=== PATIENT | male | born 1985 | race African-American/Black ===

== ENCOUNTER 2017-05-18 05:22 | Inpatient (IN) | payer OTHER ==
[~2017-05-18] VITALS: Ht 180.3 cm; Wt 79.4 kg
[2017-05-18] MEDS: IV 1/2 NORMAL SALINE 1,000 ML IV SCH ×2 (06:15→14:07)
[2017-05-18 06:20] VITALS: BP 125/67
[2017-05-18] MEDS: IV NORMAL SALINE 1000ML BAG 1,000 ML IV SCH ×2 (08:45→22:05)
[2017-05-18 11:00] VITALS: BP 120/71
[2017-05-18 13:53] VITALS: BP 120/71
[2017-05-18] MEDS ORDERED: MORPHINE SULFATE 4 MG/ML DISP.SYRIN. IV PRN (14:15)
[2017-05-18] MEDS ORDERED: PROCHLORPERAZINE 10 MG/2 ML VIAL. IV PRN (14:15)
[2017-05-18] MEDS ORDERED: 0.9 % SODIUM CHLORIDE 10 ML DISP.SYRIN. IV PRN (14:15)
--- NOTE | 2017-05-18 14:45 | PDOC2 ---
CONSULT Date of Consult Date of Consult DATE: 05/18/17 TIME: 14:44 Current Medications Current Medications Current Medications Sodium Chloride 1,000 ml @ 75 mls/hr [id number] IV Last administered on t 08:45; Start 05/18/17 at 08:45 Sodium Chloride (Normal Saline Flush) 3 ml PRN DAILY PRN IV AFTER MEDS AND BLOOD DRAWS; Start 05/18/17 at 14:15 Sodium Chloride 1,000 ml @ 100 mls/hr Q10H IV ; Start 05/18/17 at 14:07 Prochlorperazine Edisylate (Compazine) 10 mg PRN Q6HRS PRN IV NAUSEA/VOMITING; Start 05/18/17 at 14:15 Oxycodone HCl (Roxicodone) 5 mg PRN Q4HRS PRN PO PAIN - 1st choice; Start 05/18 at 14:15 Morphine Sulfate 2 mg PRN Q2HR PRN IV PAIN; Start 05/18/17 at 14:15 Allergies Allergies: Coded Allergies: No Known Drug Allergies (Unverified , 05/18/17) Vitals VITALS Vital Signs Date Time Temp Pulse Resp B/P (MAP) Pulse Ox O2 Delivery O2 Flow Rate FiO2 05/18/17 13:53 98.1 48 120/71 (87) 99 Room Air 98.1 05/18/17 11:00 16 Assessment/Plan Assessment/Plan FNTF impression: gastroenteritis advance diet at tolerated ALBERTO AHN MD May 18, 2017 14:45
[2017-05-18 15:00] VITALS: BP 138/87
[2017-05-18] MEDS: oxyCODONE IR 5 MG TABLET PO PRN ×2 (15:19→19:49)
[2017-05-18 19:00] VITALS: BP 140/91
--- NOTE | 2017-05-18 20:00 | HP ---
ADMIT DATE: 05/18/2017 CHIEF COMPLAINT: Abdominal pain. HISTORY OF PRESENT ILLNESS: The patient is a healthy 31-year-old gentleman who presented to [facility] ER last night with a 2-3 day history of abdominal pain. He locates it in the right upper quadrant to middle of his right abdomen. He denies any associated nausea or vomiting. Actually has been able to eat fairly well. On CT in the Emergency Room, he was found with signs consistent with acute appendicitis. He was therefore transported to [facility] for surgical evaluation. He denies having any fevers or chills or any other symptoms. PAST MEDICAL HISTORY: None. FAMILY HISTORY: None. SOCIAL HISTORY: No toxic habits. ALLERGIES: No known drug allergies. MEDICATIONS: No home medications. REVIEW OF SYSTEMS: Positive only for abdominal pain as per HPI. Rest of organ system review is completely negative. PHYSICAL EXAMINATION: VITAL SIGNS: From today show a blood pressure of 120/71, heart rate of 48, respiratory rate at 16. He is afebrile. GENERAL: This is a well-nourished, well-developed 31-year-old gentleman, alert and oriented, no acute distress, very pleasant. HEENT: Shows no scleral icterus. Oral mucosa is pink and moist. NECK: Supple. LUNGS: Clear. HEART: Has regular rate and rhythm. ABDOMEN: Has minimal tenderness to palpation in the mid right abdominal area. Bowel sounds are normal. EXTREMITIES: Show no edema. SKIN: Warm, soft and dry without any rash. LABORATORY DATA: From [facility] were reviewed. ASSESSMENT AND PLAN: The patient is a 31-year-old gentleman with clinical findings of appendicitis. He is relatively asymptomatic. Surgery has been consulted. There are no plans for immediate surgery as of yet. We will continue on IV fluids for the time being. He is not on antibiotics. We will wait for the surgical input. DARIAN SOTO MD DR: UR/nts JOB#: [id number] / [id number] WILLIAM
[2017-05-18 23:00] VITALS: BP 100/55
[2017-05-19 03:00] VITALS: BP 122/77
[2017-05-19] MEDS: oxyCODONE IR 5 MG TABLET PO PRN (03:48)
[2017-05-19 05:11] LABS: BASO % 1 % (0-3); EOS % 2 % (0-3); HEMATOCRIT 42.8 % (39.0-53.0); LYMPH # 1.3 x10^3/uL (1.0-4.8); LYMPH % 38 % (24-48); MEAN CORPUSCULAR HEMOGLOBIN 28 pg (25-35); MEAN CORPUSCULAR HGB CONC 33 g/dL (31-37); MEAN CORPUSCULAR VOLUME 84 fL (79-100); MONO % 9 % (0-9); NEUT % 51 % (31-73); PLATELET COUNT 175 x10^3/uL (140-400); RED BLOOD COUNT 5.07 x10^6/uL (4.30-5.70); RED CELL DISTRIBUTION WIDTH 14.7 % (11.5-14.5); WHITE BLOOD COUNT 3.4 x10^3/uL (4.0-11.0)
[2017-05-19 07:00] VITALS: BP 119/64
[2017-05-19 07:44] LABS: ALBUMIN 3.1 g/dL (3.4-5.0); CALCIUM 8.6 mg/dL (8.5-10.1); CREATININE 1.3 mg/dL (0.7-1.3); GFR 77.9; TOTAL BILIRUBIN 1.2 mg/dL (0.2-1.0); TOTAL PROTEIN 6.1 g/dL (6.4-8.2)
[2017-05-19] MEDS: IV 1/2 NORMAL SALINE 1,000 ML IV SCH (10:07)
[2017-05-19] MEDS: IV NORMAL SALINE 1000ML BAG 1,000 ML IV SCH (11:25)
[2017-05-19 11:48] VITALS: BP 131/87
--- NOTE | 2017-05-19 12:24 | PDOC ---
KONG GALEANO [employer] 05/19/17 1224: SURGICAL PROGRESS NOTE Subjective tolerating diet mild epigastric pain Vital Signs Vital Signs Date Time Temp Pulse Resp B/P (MAP) Pulse Ox O2 Delivery O2 Flow Rate FiO2 05/19/17 11:48 97.7 62 18 131/87 (102) 98 Room Air 97.7 General: Alert, Oriented X3, Cooperative, No acute distress Abdomen: Soft, Other (mild ttp epigastric ) Labs Laboratory Tests Test 05/19/17 04:30 White Blood Count 3.4 x10^3/uL (4.0-11.0) Red Blood Count 5.07 x10^6/uL (4.30-5.70) Hemoglobin 14.0 g/dL (13.0-17.5) Hematocrit 42.8 % (39.0-53.0) Mean Corpuscular Volume 84 fL (79-100) Mean Corpuscular Hemoglobin 28 pg (25-35) Mean Corpuscular Hemoglobin Concent 33 g/dL (31-37) Red Cell Distribution Width 14.7 % (11.5-14.5) Platelet Count 175 x10^3/uL (140-400) Neutrophils (%) (Auto) 51 % (31-73) Lymphocytes (%) (Auto) 38 % (24-48) Monocytes (%) (Auto) 9 % (0-9) Eosinophils (%) (Auto) 2 % (0-3) Basophils (%) (Auto) 1 % (0-3) Neutrophils # (Auto) 1.7 x10^3uL (1.8-7.7) Lymphocytes # (Auto) 1.3 x10^3/uL (1.0-4.8) Monocytes # (Auto) 0.3 x10^3/uL (0.0-1.1) Eosinophils # (Auto) 0.1 x10^3/uL (0.0-0.7) Basophils # (Auto) 0.0 x10^3/uL (0.0-0.2) Sodium Level 141 mmol/L (136-145) Potassium Level 4.0 mmol/L (3.5-5.1) Chloride Level 106 mmol/L (98-107) Carbon Dioxide Level 30 mmol/L (21-32) Anion Gap 5 (6-14) Blood Urea Nitrogen 5 mg/dL (8-26) Creatinine 1.3 mg/dL (0.7-1.3) Estimated GFR (Cockcroft-Gault) 77.9 BUN/Creatinine Ratio 4 (6-20) Glucose Level 106 mg/dL (70-99) Calcium Level 8.6 mg/dL (8.5-10.1) Total Bilirubin 1.2 mg/dL (0.2-1.0) Aspartate Amino Transf (AST/SGOT) 23 U/L (15-37) Alanine Aminotransferase (ALT/SGPT) 19 U/L (16-63) Alkaline Phosphatase 48 U/L (46-116) Total Protein 6.1 g/dL (6.4-8.2) Albumin 3.1 g/dL (3.4-5.0) Albumin/Globulin Ratio 1.0 (1.0-1.7) Laboratory Tests Test 05/19/17 04:30 White Blood Count 3.4 x10^3/uL (4.0-11.0) Red Blood Count 5.07 x10^6/uL (4.30-5.70) Hemoglobin 14.0 g/dL (13.0-17.5) Hematocrit 42.8 % (39.0-53.0) Mean Corpuscular Volume 84 fL (79-100) Mean Corpuscular Hemoglobin 28 pg (25-35) Mean Corpuscular Hemoglobin Concent 33 g/dL (31-37) Red Cell Distribution Width 14.7 % (11.5-14.5) Platelet Count 175 x10^3/uL (140-400) Neutrophils (%) (Auto) 51 % (31-73) Lymphocytes (%) (Auto) 38 % (24-48) Monocytes (%) (Auto) 9 % (0-9) Eosinophils (%) (Auto) 2 % (0-3) Basophils (%) (Auto) 1 % (0-3) Neutrophils # (Auto) 1.7 x10^3uL (1.8-7.7) Lymphocytes # (Auto) 1.3 x10^3/uL (1.0-4.8) Monocytes # (Auto) 0.3 x10^3/uL (0.0-1.1) Eosinophils # (Auto) 0.1 x10^3/uL (0.0-0.7) Basophils # (Auto) 0.0 x10^3/uL (0.0-0.2) Sodium Level 141 mmol/L (136-145) Potassium Level 4.0 mmol/L (3.5-5.1) Chloride Level 106 mmol/L (98-107) Carbon Dioxide Level 30 mmol/L (21-32) Anion Gap 5 (6-14) Blood Urea Nitrogen 5 mg/dL (8-26) Creatinine 1.3 mg/dL (0.7-1.3) Estimated GFR (Cockcroft-Gault) 77.9 BUN/Creatinine Ratio 4 (6-20) Glucose Level 106 mg/dL (70-99) Calcium Level 8.6 mg/dL (8.5-10.1) Total Bilirubin 1.2 mg/dL (0.2-1.0) Aspartate Amino Transf (AST/SGOT) 23 U/L (15-37) Alanine Aminotransferase (ALT/SGPT) 19 U/L (16-63) Alkaline Phosphatase 48 U/L (46-116) Total Protein 6.1 g/dL (6.4-8.2) Albumin 3.1 g/dL (3.4-5.0) Albumin/Globulin Ratio 1.0 (1.0-1.7) Assessment/Plan gastroenteritis improving ok to dc Problems: ALBERTO AHN MD 05/19/17 0638: SURGICAL PROGRESS NOTE Assessment/Plan agree with above Problems: KONG GALEANO APRN May 19, 2017 12:24 ALBERTO AHN MD May 19, 2017 13:58
--- NOTE | 2017-05-19 13:22 | PDOC ---
PROGRESS NOTES Chief Complaint Chief Complaint Epigastric abd pain History of Present Illness History of Present Illness The patient is a healthy 31-year-old gentleman who presented to [facility] ER last night with a 2-3 day history of abdominal pain. He locates it in the right upper quadrant to middle of his right abdomen. He denies any associated nausea or vomiting. Actually has been able to eat fairly well. On CT in the Emergency Room, he was found with signs consistent with acute appendicitis. He was therefore transported to [facility] for surgical evaluation. He denies having any fevers or chills or any other symptoms. Pt seen at bedside. He is accompanied by many family members who I discussed the case with. Answered all of there questions and fully discussed all lab results and testing. He is in no acute distress and is able to walk around the room without pain. he reports that his pain is still present but seems to be improving. he denies any nausea or vomiting. No RLQ abd pain or signs of peritoneal irritation. Pt has been evaluated by general surgery who do not believe the etiology of his Sx are due to appendicitis and do recommend appy at this time. They believe this is most likely viral gastroenteritis and should resolve with symptomatic support. Vitals Vitals Vital Signs Date Time Temp Pulse Resp B/P (MAP) Pulse Ox O2 Delivery O2 Flow Rate FiO2 05/19/17 11:48 97.7 62 18 131/87 (102) 98 Room Air 97.7 Physical Exam General: Alert, Oriented X3, Cooperative, No acute distress Heart: Regular rate, Normal S1, Normal S2, No murmurs Lungs: Clear Abdomen: Soft, Other (mild ttp epigastric ) Labs LABS Laboratory Tests Test 05/19/17 04:30 White Blood Count 3.4 x10^3/uL (4.0-11.0) Red Blood Count 5.07 x10^6/uL (4.30-5.70) Hemoglobin 14.0 g/dL (13.0-17.5) Hematocrit 42.8 % (39.0-53.0) Mean Corpuscular Volume 84 fL (79-100) Mean Corpuscular Hemoglobin 28 pg (25-35) Mean Corpuscular Hemoglobin Concent 33 g/dL (31-37) Red Cell Distribution Width 14.7 % (11.5-14.5) Platelet Count 175 x10^3/uL (140-400) Neutrophils (%) (Auto) 51 % (31-73) Lymphocytes (%) (Auto) 38 % (24-48) Monocytes (%) (Auto) 9 % (0-9) Eosinophils (%) (Auto) 2 % (0-3) Basophils (%) (Auto) 1 % (0-3) Neutrophils # (Auto) 1.7 x10^3uL (1.8-7.7) Lymphocytes # (Auto) 1.3 x10^3/uL (1.0-4.8) Monocytes # (Auto) 0.3 x10^3/uL (0.0-1.1) Eosinophils # (Auto) 0.1 x10^3/uL (0.0-0.7) Basophils # (Auto) 0.0 x10^3/uL (0.0-0.2) Sodium Level 141 mmol/L (136-145) Potassium Level 4.0 mmol/L (3.5-5.1) Chloride Level 106 mmol/L (98-107) Carbon Dioxide Level 30 mmol/L (21-32) Anion Gap 5 (6-14) Blood Urea Nitrogen 5 mg/dL (8-26) Creatinine 1.3 mg/dL (0.7-1.3) Estimated GFR (Cockcroft-Gault) 77.9 BUN/Creatinine Ratio 4 (6-20) Glucose Level 106 mg/dL (70-99) Calcium Level 8.6 mg/dL (8.5-10.1) Total Bilirubin 1.2 mg/dL (0.2-1.0) Aspartate Amino Transf (AST/SGOT) 23 U/L (15-37) Alanine Aminotransferase (ALT/SGPT) 19 U/L (16-63) Alkaline Phosphatase 48 U/L (46-116) Total Protein 6.1 g/dL (6.4-8.2) Albumin 3.1 g/dL (3.4-5.0) Albumin/Globulin Ratio 1.0 (1.0-1.7) Review of Systems Review of Systems General: + hunger, +fatigue, Denies fever and chills CV: No CP or palp resp: no SOB or wheezing GI: + mild Epigastric abd pain, denies rlq abd pain, denies nausea and vomiting Assessment and Plan Assessmemt and Plan Assessment: -Gastroenteritis Plan: -IVF fluids -advance diet at tolerated -discussed case and answered all questions with patient and family at bedside -general surgery consult -If patient is able to tolerate PO food and cleared by general surgery then probable d/c to home Problems: Comment Review of Relevant I have reviewed the following items keiko (where applicable) has been applied. Labs Laboratory Tests Test 05/19/17 04:30 White Blood Count 3.4 x10^3/uL (4.0-11.0) Red Blood Count 5.07 x10^6/uL (4.30-5.70) Hemoglobin 14.0 g/dL (13.0-17.5) Hematocrit 42.8 % (39.0-53.0) Mean Corpuscular Volume 84 fL (79-100) Mean Corpuscular Hemoglobin 28 pg (25-35) Mean Corpuscular Hemoglobin Concent 33 g/dL (31-37) Red Cell Distribution Width 14.7 % (11.5-14.5) Platelet Count 175 x10^3/uL (140-400) Neutrophils (%) (Auto) 51 % (31-73) Lymphocytes (%) (Auto) 38 % (24-48) Monocytes (%) (Auto) 9 % (0-9) Eosinophils (%) (Auto) 2 % (0-3) Basophils (%) (Auto) 1 % (0-3) Neutrophils # (Auto) 1.7 x10^3uL (1.8-7.7) Lymphocytes # (Auto) 1.3 x10^3/uL (1.0-4.8) Monocytes # (Auto) 0.3 x10^3/uL (0.0-1.1) Eosinophils # (Auto) 0.1 x10^3/uL (0.0-0.7) Basophils # (Auto) 0.0 x10^3/uL (0.0-0.2) Sodium Level 141 mmol/L (136-145) Potassium Level 4.0 mmol/L (3.5-5.1) Chloride Level 106 mmol/L (98-107) Carbon Dioxide Level 30 mmol/L (21-32) Anion Gap 5 (6-14) Blood Urea Nitrogen 5 mg/dL (8-26) Creatinine 1.3 mg/dL (0.7-1.3) Estimated GFR (Cockcroft-Gault) 77.9 BUN/Creatinine Ratio 4 (6-20) Glucose Level 106 mg/dL (70-99) Calcium Level 8.6 mg/dL (8.5-10.1) Total Bilirubin 1.2 mg/dL (0.2-1.0) Aspartate Amino Transf (AST/SGOT) 23 U/L (15-37) Alanine Aminotransferase (ALT/SGPT) 19 U/L (16-63) Alkaline Phosphatase 48 U/L (46-116) Total Protein 6.1 g/dL (6.4-8.2) Albumin 3.1 g/dL (3.4-5.0) Albumin/Globulin Ratio 1.0 (1.0-1.7) Laboratory Tests Test 05/19/17 04:30 White Blood Count 3.4 x10^3/uL (4.0-11.0) Red Blood Count 5.07 x10^6/uL (4.30-5.70) Hemoglobin 14.0 g/dL (13.0-17.5) Hematocrit 42.8 % (39.0-53.0) Mean Corpuscular Volume 84 fL (79-100) Mean Corpuscular Hemoglobin 28 pg (25-35) Mean Corpuscular Hemoglobin Concent 33 g/dL (31-37) Red Cell Distribution Width 14.7 % (11.5-14.5) Platelet Count 175 x10^3/uL (140-400) Neutrophils (%) (Auto) 51 % (31-73) Lymphocytes (%) (Auto) 38 % (24-48) Monocytes (%) (Auto) 9 % (0-9) Eosinophils (%) (Auto) 2 % (0-3) Basophils (%) (Auto) 1 % (0-3) Neutrophils # (Auto) 1.7 x10^3uL (1.8-7.7) Lymphocytes # (Auto) 1.3 x10^3/uL (1.0-4.8) Monocytes # (Auto) 0.3 x10^3/uL (0.0-1.1) Eosinophils # (Auto) 0.1 x10^3/uL (0.0-0.7) Basophils # (Auto) 0.0 x10^3/uL (0.0-0.2) Sodium Level 141 mmol/L (136-145) Potassium Level 4.0 mmol/L (3.5-5.1) Chloride Level 106 mmol/L (98-107) Carbon Dioxide Level 30 mmol/L (21-32) Anion Gap 5 (6-14) Blood Urea Nitrogen 5 mg/dL (8-26) Creatinine 1.3 mg/dL (0.7-1.3) Estimated GFR (Cockcroft-Gault) 77.9 BUN/Creatinine Ratio 4 (6-20) Glucose Level 106 mg/dL (70-99) Calcium Level 8.6 mg/dL (8.5-10.1) Total Bilirubin 1.2 mg/dL (0.2-1.0) Aspartate Amino Transf (AST/SGOT) 23 U/L (15-37) Alanine Aminotransferase (ALT/SGPT) 19 U/L (16-63) Alkaline Phosphatase 48 U/L (46-116) Total Protein 6.1 g/dL (6.4-8.2) Albumin 3.1 g/dL (3.4-5.0) Albumin/Globulin Ratio 1.0 (1.0-1.7) Medications Current Medications Sodium Chloride 1,000 ml @ 75 mls/hr [id number] IV Last administered on 08:45; Start 05/18/17 at 08:45 Sodium Chloride (Normal Saline Flush) 3 ml PRN DAILY PRN IV AFTER MEDS AND BLOOD DRAWS; Start 05/18/17 at 14:15 Sodium Chloride 1,000 ml @ 100 mls/hr Q10H IV Last administered on 05/18/17 06:15; Start 05/18/17 at 14:07 Prochlorperazine Edisylate (Compazine) 10 mg PRN Q6HRS PRN IV NAUSEA/VOMITING; Start 05/18/17 at 14:15 Oxycodone HCl (Roxicodone) 5 mg PRN Q4HRS PRN PO PAIN - 1st choice Last administered on 05/19/17 03:48; Start 05/18/17 at 14:15 Morphine Sulfate 2 mg PRN Q2HR PRN IV PAIN; Start 05/18/17 at 14:15 Vitals/I & O Vital Sign - Last 24 Hours 05/18/17 05/18/17 05/18/17 05/18/17 13:53 15:00 15:19 19:00 Temp 98.1 97.7 97.3 98.1 97.7 97.3 Pulse 48 58 57 Resp 16 18 B/P (MAP) 120/71 (87) 138/87 (104) 140/91 (107) Pulse Ox 99 99 100 O2 Delivery Room Air Room Air Room Air 05/18/17 05/18/17 05/18/17 05/18/17 19:00 19:49 21:00 23:00 Temp 97.3 97.8 97.3 97.8 Pulse 57 47 Resp 19 20 16 B/P (MAP) 140/91 (107) 100/55 (70) Pulse Ox 100 99 O2 Delivery Room Air Room Air Room Air Room Air 05/19/17 05/19/17 05/19/17 05/19/17 03:00 03:48 04:48 07:00 Temp 98.6 97.5 98.6 97.5 Pulse 52 52 Resp 16 20 20 18 B/P (MAP) 122/77 (92) 119/64 (82) Pulse Ox 99 99 O2 Delivery Room Air Room Air Room Air Room Air 05/19/17 05/19/17 07:20 11:48 Temp 97.7 97.7 Pulse 62 Resp 18 B/P (MAP) 131/87 (102) Pulse Ox 98 O2 Delivery Room Air Room Air HIPOLITO YEE III DO May 19, 2017 13:22
--- NOTE | 2017-06-07 12:50 | DS ---
DATE OF DISCHARGE: 05/19/2017 ADMISSION DIAGNOSIS: Possible appendicitis. DISCHARGE DIAGNOSIS: Resolving appendicitis (we did more imaging and watched him for a day or two, his symptoms seemed to resolve, he did not require a surgery). HOSPITAL COURSE: The patient is a pleasant 31-year-old male who presented with abdominal pain. There was some concern he could have appendicitis. He was admitted. We gave him fluids, antiemetics, and pain meds. We did some consults with General Surgery and GI. His symptoms resolved. He did not require surgery, we discharged to home. DISPOSITION: Home. ACTIVITY: As tolerated. DIET: Low sodium. MEDICATIONS: Please see the MRAD. TOTAL TIME ON DISCHARGE: 38 minutes. HIPOLITO YEE DO DR: GM/charlene JOB#: [id number] / [id number]
== END 2017-05-19 15:00 | disposition home or self-care (01) | DRG 392 ==
LOC: 4 NORTH 06:05
PROVIDERS: ADMIT Internal Medicine Hematology & Oncology; ATTEND Internal Medicine Hematology & Oncology
DX: A08.4 Viral intestinal infection, unspecified (principal)
CPT/HCPCS: 36415; 80053; 85025; J7030